=== PATIENT | male | born 1960 | race Caucasian/White ===

== ENCOUNTER 2017-06-13 11:22 | Outpatient (CLI) | payer BC ==
--- NOTE | 2017-06-13 12:33 | Diagnostic Imaging Report ---
Indication: Right flank pain, kidney stones on prior CT Technique: Grayscale and duplex images of the kidneys, retroperitoneum, and bladder were obtained. Comparison:None Findings: Right kidney measures 10.4 cm in length. Left kidney measures 10.5 cm in length. Both kidneys demonstrate normal echogenicity. No hydronephrosis. Echogenic foci are seen in both renal sinuses. The largest is on the left measuring 10 mm diameter.. Normal inferior vena cava. Bladder is normal. Impression: Bilateral renal echogenic foci, probably representing renal calculi. Correlate with prior outside studies Negative for hydronephrosis.
== END 2017-06-13 13:22 | disposition home or self-care (01) ==
LOC: ULS 11:22
DX: R10.9 Unspecified abdominal pain (principal); Z87.442 Personal history of urinary calculi
CPT/HCPCS: 76775

== ENCOUNTER 2018-03-21 17:17 | Outpatient (CLI) | payer BC ==
--- NOTE | 2018-03-22 11:28 | Diagnostic Imaging Report ---
Indication: Abdominal pain Comparison: None Single view of the abdomen obtained Findings: Bowel gas pattern is nonspecific. No mass, ectopic calcifications, or abnormal gas collections are identified. The bones are unremarkable. Impression: No acute findings
== END 2018-03-21 19:15 | disposition home or self-care (01) ==
LOC: RAD 17:17
DX: N20.0 Calculus of kidney (principal)
CPT/HCPCS: 74018